=== PATIENT | female | born 1960 | race Caucasian/White ===

== ENCOUNTER 2016-10-02 13:32 | Outpatient (CLI) | payer BC ==
[~2016-10-02] VITALS: Ht 162.6 cm; Wt 65.9 kg
[~2016-10-02 13:32] MED LIST: HYDR-3730 PO; LISI5TAB PO; NF-ESOM40C PO; OMEP-83 PO; PROP20TA5 PO; SUMA25TA3 PO; VENL75CA PO; [UNRECOGNIZED DRUG - OTHER] PO
[2016-10-02] MEDS ORDERED: MULT-35 PO (14:39)
[2016-10-02] MEDS ORDERED: SENN-175 PO (14:39)
[2016-10-02] MEDS ORDERED: SUMA50TA2 PO (14:39)
[2016-10-02 14:43] VITALS: BP 113/69
[2016-10-02 15:14] LABS: BILIRUBIN,URINE NEGATIVE (NEGATIVE); KETONES,URINE NEGATIVE (NEGATIVE); LEUKOCYTE ESTERASE ,URINE NEGATIVE (NEGATIVE); NITRITE,URINE NEGATIVE (NEGATIVE); PH,URINE 5 (5-9); PROTEIN,URINE NEGATIVE (NEGATIVE); UROBILINOGEN,URINE NORMAL (NORMAL)
[2016-10-02 15:17] LABS: BASOPHILS % (AUTO) 0 % (0-10); EOSINOPHILS # (AUTO) 0.1 10^3/uL (0.0-0.3); EOSINOPHILS % (AUTO) 2 % (0-10); LYMPHOCYTES # (AUTO) 1.9 X 10^3 (1.0-4.0); LYMPHOCYTES % (AUTO) 38 % (12-44); MEAN CORPUSCULAR HEMOGLOBIN 31 PG (25-34); MEAN CORPUSCULAR HGB CONC 32 G/DL (32-36); MEAN CORPUSCULAR VOLUME 96 FL (80-99); MEAN PLATELET VOLUME 10.8 FL (7.4-10.4); MONOCYTES # (AUTO) 0.4 X 10^3 (0.0-1.0); MONOCYTES % (AUTO) 7 % (0-12); NEUTROPHILS # (AUTO) 2.7 X 10^3 (1.8-7.8); NEUTROPHILS % (AUTO) 53 % (42-75); PLATELET COUNT 232 10^3/uL (130-400); RED BLOOD COUNT 3.74 10^6/uL (4.35-5.85); RED CELL DISTRIBUTION WIDTH 13.5 % (10.0-14.5); WHITE BLOOD COUNT 5.1 10^3/uL (4.3-11.0)
[2016-10-02 15:46] LABS: SQUAMOUS EPITHELIAL CELL,UR 0-2 /HPF; WBC,URINE RARE /HPF
== END 2016-10-02 16:01 | disposition home or self-care (01) ==
LOC: PREOP 13:32
PROVIDERS: ATTEND Obstetrics & Gynecology
DX: Z01.812 Encounter for preprocedural laboratory examination (principal); Z11.2 Encounter for screening for other bacterial diseases; R19.09 Other intra-abdominal and pelvic swelling, mass and lump; N73.6 Female pelvic peritoneal adhesions (postinfective)
CPT/HCPCS: 36415; 81000; 85025; 86850; 86900; 86901; 87081

== ENCOUNTER 2016-10-09 06:04 | Day surgery (SDC) | payer BC ==
[~2016-10-09] VITALS: Ht 162.6 cm; Wt 65.9 kg
[~2016-10-09 06:04] MED LIST changes: +MULT-35 PO; +SENN-175 PO; +SUMA50TA2 PO
[2016-10-09] MEDS ORDERED: ceFAZolin 1,000 MG (ANCEF) VIAL ONE (06:14)
[2016-10-09] MEDS ORDERED: metroNIDAZOLE 500MG/100ML IVPB 100 ML ONE (06:15)
[2016-10-09] MEDS ORDERED: NS (IVPB) 50 ML ONE (06:15)
[2016-10-09] MEDS ORDERED: ONDANSETRON 4 MG/2 ML (SDV) Z0FRAN ONE ×2 (06:32→11:09)
[2016-10-09] MEDS ORDERED: LIDOCAINE PF 2% 5 ML (XYLOCAINE) VIAL ONE (06:32)
[2016-10-09] MEDS ORDERED: MIDAZOLAM 2 MG/2 ML (VERSED) VIAL ONE (06:32)
[2016-10-09] MEDS ORDERED: DEXAMETHASONE PF 10 MG/ML (DECADRON) VIAL ONE (06:32)
[2016-10-09] MEDS ORDERED: SEVOFLURANE (ULTANE) 15 ML INHAL SOLN ONE ×13 (06:32→10:47)
[2016-10-09] MEDS ORDERED: fentaNYL INJECTION 100 MCG/2 ML AMP ONE ×3 (06:32→11:09)
[2016-10-09] MEDS ORDERED: proPOfol 200 MG/20 ML (DIPRIVAN) VIAL IV ONE (06:32)
[2016-10-09] MEDS ORDERED: LACTATED RINGERS 1,000 ML IV ONE ×3 (06:32→10:22)
[2016-10-09] MEDS ORDERED: ROCURONIUM 50 MG/5 ML (ZEMURON) VIAL IV ONE ×2 (06:32→08:12)
[2016-10-09] MEDS ORDERED: SCOPOLAMINE 1.5 MG (TRANSDERM-SCOP) PATCH TOP ONE (06:45)
[2016-10-09] MEDS ORDERED: metroNIDAZOLE 500 MG/100 ML IVPB (PRE-MIX) IV ONE (06:45)
[2016-10-09] MEDS ORDERED: ONDANSETRON 4 MG/2 ML (SDV) Z0FRAN IV ONE (06:45)
[2016-10-09] MEDS ORDERED: FAMOTIDINE 20MG/2ML IV (PEPCID) IV ONE (06:45)
[2016-10-09] MEDS ORDERED: MIDAZOLAM 2 MG/2 ML (VERSED) VIAL IV ONE (06:45)
[2016-10-09] MEDS ORDERED: CATHETER FLUSH 10 ML SYR IV PRN (06:45)
[2016-10-09 06:47] VITALS: BP 123/73
[2016-10-09] MEDS: LACTATED RINGERS 1,000 ML IV PRN ×3 (06:56→10:00)
[2016-10-09] MEDS ORDERED: ceFAZolin 1 GM/NS 50 ML IVPB IV ONE ×2 (07:15)
[2016-10-09] MEDS ORDERED: BUP/EPI 0.5% 1:200,000 (MARCAINE) 10ML VIAL IJ ONE ×2 (07:20→07:22)
--- NOTE | 2016-10-09 07:36 | Progress Note-Pre Operative ---
Pre-Operative Progress Note H&P Reviewed The H&P was reviewed, patient examined and no changes noted. Date Seen by Provider: Oct 09, 2016 Time Seen by Provider: 07:29 Date H&P Reviewed: Oct 09, 2016 Time H&P Reviewed: 07:29 Pre-Operative Diagnosis: bilateral adnexal masses/cysts, enteropelvic adhesions SUHAIL BRANTLEY DO Oct 09, 2016 07:36
[2016-10-09] MEDS ORDERED: ATROPINE INJ 0.4 MG/ML SDV ONE (08:28)
[2016-10-09] MEDS ORDERED: NEOSTIGMINE (BLOXIVERZ ) 1 MG/1ML 10 ML VIAL ONE (09:52)
[2016-10-09] MEDS ORDERED: GLYCOPYRROLATE 0.2 MG/ML (ROBINUL) 2 ML VIAL ONE (09:52)
[2016-10-09] MEDS ORDERED: morphine INJ 10 MG/ML 1ML (SYR OR VIAL) ONE (11:09)
[2016-10-09] MEDS ORDERED: HYDROmorphone (DILAUDID) 2 MG/ML VIAL ONE (11:09)
[2016-10-09] MEDS ORDERED: KETOROLAC 30 MG/ML VIAL ONE (11:09)
[2016-10-09] MEDS ORDERED: LACTATED RINGERS 1,000 ML IV SCH (11:13)
[2016-10-09] MEDS ORDERED: KETOROLAC 30 MG/ML VIAL IV PRN (11:15)
[2016-10-09] MEDS ORDERED: DOCUSATE SODIUM 100 MG (COLACE) CAP PO PRN (11:15)
[2016-10-09] MEDS ORDERED: HYDROcodone/APAP 7.5 MG/325 MG (LORTAB, LORCET PLUS) TABLET PO PRN (11:15)
[2016-10-09] MEDS ORDERED: SIMETHICONE 80 MG (MYLICON) CHEW PO PRN (11:15)
[2016-10-09] MEDS ORDERED: ONDANSETRON 4 MG/2 ML (SDV) Z0FRAN IV PRN (11:15)
--- NOTE | 2016-10-09 11:17 | Operative Report ---
Operative Report Date of Procedure/Surgery Oct 09, 2016 Surgeon (s) SUHAIL BRANTLEY DO Textbook Associate (s): ALVINA Mcfarlane Post-Operative Diagnosis Bilateral adnexal masses, complex Extensive bowel and omental adhesions Procedure Performed Robotic bilateral salpingectomy and extensive enterolysis/Lysis of adhesions Mini laparotomy Description of Procedure Anesthesia Type: General Estimated blood loss (mL): minimal Specimen(s) collected/removed bilateral tubes and ovaries Allergies and Home Medications Allergies Coded Allergies: penicillin G (Verified Allergy, Intermediate, RASH, pt is able to tolerate Cephalsporins, 10/09/16) Home Medications Lisinopril 5 Mg Tablet, 5 MG PO DAILY, (Reported) Multivitamin 1 Each Tablet, 1 EACH PO DAILY, (Reported) Propranolol Hcl 20 Mg Tablet, 20 MG PO DAILY, (Reported) Sennosides/Docusate Sodium 1 Each Tablet, 1 EACH PO PRN PRN for CONSTIPATION- 1ST LINE, (Reported) Sumatriptan Succinate 50 Mg Tablet, 50 MG PO PRN PRN for MIGRAINE, (Reported) Venlafaxine HCl 75 Mg Cap.er.24h, 75 MG PO DAILY, (Reported) SUHAIL BRANTLEY DO Oct 09, 2016 11:17
[2016-10-09] MEDS ORDERED: ONDANSETRON 4 MG/2 ML (SDV) Z0FRAN IVP PRN (11:30)
[2016-10-09] MEDS ORDERED: morphine INJ 10 MG/ML 1ML (SYR OR VIAL) IVP PRN (11:30)
[2016-10-09] MEDS ORDERED: MEPERIDINE (DEMEROL) INJ 50 MG/ML IVP PRN (11:30)
[2016-10-09] MEDS ORDERED: HYDROmorphone (DILAUDID) 2 MG/ML VIAL IVP PRN (11:30)
[2016-10-09] MEDS ORDERED: KETOROLAC 30 MG/ML VIAL IVP ONE (11:30)
[2016-10-09] MEDS ORDERED: PROMETHAZINE INJ 25 MG/ML (PHENERGAN) AMP IVP PRN (11:30)
[2016-10-09 12:25] VITALS: BP 114/68
[2016-10-09 16:16] VITALS: BP 99/52
[2016-10-09] MEDS ORDERED: HYDR-3816 PO (16:31)
[2016-10-09] MEDS ORDERED: IBUP-1773 PO (16:32)
--- NOTE | 2016-10-09 16:35 | Discharge Inst-Women's Service ---
Discharge Inst-Women's Serv Depart Medication/Instructions New, Converted or Re-Newed RX: RX on Chart Instructions no lifting over 25 lbs, no driving for 1 week Final Diagnosis bilateral ovarian/adnexal cysts, extensive adhesions Consults/Follow Up Additional Follow Up: Yes (1-20weeks with [facility]; 6 weeks with [facility]) Activity Activity: Activity as Tolerated Driving Instructions: No Driving for 1 Week NO SMOKING: NO SMOKING Nothing Inside Vagina: No Douching, No [place], No Tampons Diet Discharge Diet: No Restrictions Symptoms to Report to : Pain Increased, Fever Over 101 Degrees F, Urination Difficulty, Pain/Pressure in Jaw, Vaginal Bleeding Increase, Cramps in Feet or Legs, Vaginal Discharge Foul For Any Problems or Questions: Contact Your Physician Skin/Wound Care Infection Signs and Symptoms: Increased Redness, Foul Odor of Wound, Increased Drainage, Skin Itchy or Has a Rash, Increased Swelling, Temperature Above 101 F Operative Area Clean and Dry: You May Remove Bandage (May remove the large bandage in am. Keep others in place unless soiled or wet. Will remove at the office) Stitches/Felix/Dermabond: Dermabond Bathing Instructions: SUHAIL Niño DO Oct 09, 2016 16:35
[2016-10-10] MEDS ORDERED: IBUPROFEN 600 MG (MOTRIN) TAB PO PRN (05:00)
== END 2016-10-09 17:30 | disposition home or self-care (01) ==
LOC: SDC 06:04 → WS 12:49 → SDC 17:30
PROVIDERS: ATTEND Obstetrics & Gynecology
DX: D27.0 Benign neoplasm of right ovary (principal); D27.1 Benign neoplasm of left ovary; N73.6 Female pelvic peritoneal adhesions (postinfective); I10 Essential (primary) hypertension; G43.909 Migraine, unspecified, not intractable, without status migrainosus; Z79.899 Other long term (current) drug therapy
CPT/HCPCS: 94664; 96361

== ENCOUNTER 2016-11-04 12:49 | Emergency (ER) | payer BC ==
[~2016-11-04] VITALS: Ht 162.6 cm; Wt 63.5 kg
[~2016-11-04 12:49] MED LIST changes: +HYDR-3816 PO; +IBUP-1773 PO
--- OUTSIDE RECORDS SUMMARY | 2016-11-04 12:55 | XMS REPORT | Clinical Summary ---
Author Author [facility] Organization [facility] Address Unknown Phone Unavailable Care Team Providers Care Packing And Shipping Clerk Name Role Phone PCP Unavailable Source Comments Some departments are not documenting in the electronic medical record. If you do not see the information that you expected, contact Release of Information in the Health Information Management department at [phone] for further assistance in locating additional records.[facility] Allergies Active Allergy Reactions Severity Noted Date Comments Penicillins UNKNOWN Low 11/28/2015 Current Medications Prescription Sig. Disp. Refills Start End Date Status Date lisinopril (PRINIVIL; Take 5 mg by mouth daily. Active ZESTRIL) 5 mg tablet propranolol (INDERAL) 20 Take 20 mg by mouth every Active mg/5 mL (4 mg/mL) oral 8 hours. solution venlafaxine XR (EFFEXOR Take 75 mg by mouth Active XR) 75 mg capsule daily. Take with food. SUMAtriptan succinate Take 25 mg by mouth every Active (IMITREX) 25 mg tablet 2 hours as needed for Migraine symptoms. Dose may be repeated in 2 hours if needed. Max of 8 tablets in 24 hours. Active Problems Problem Noted Date Pelvic mass 11/30/2015 Pelvic pain 11/30/2015 Sexual pain disorder 11/30/2015 Family History Medical History Relation Name Comments Hypertension Brother Hypertension Father Cancer-Breast Maternal Aunt Diabetes Maternal Aunt Diabetes Maternal Uncle Hypertension Maternal Uncle Cancer Mother Hypertension Mother Migraines Mother Stroke Mother Diabetes Paternal Aunt Cancer-Breast Sister Depression Sister Migraines Sister Relation Name Status Comments Brother Father Maternal Aunt Maternal Uncle Mother Paternal Aunt Sister Social History Tobacco Use Types Packs/Day Years Used Date Never Smoker Alcohol Use Drinks/Week oz/Week Comments No 0 Standard 0.0 drinks or equivalent Sex Assigned at Date Recorded Not on file Last Filed Vital Signs Vital Sign Reading Time Taken Blood Pressure 111/73 12/28/2015 10:39 AM CDT Pulse 70 12/28/2015 10:39 AM CDT Temperature 36.7 C (98 F) 12/28/2015 10:39 AM CDT Respiratory Rate - - Oxygen Saturation 96% 12/28/2015 10:39 AM CDT Inhaled Oxygen - - Concentration Weight 78.9 kg (174 lb) 12/28/2015 10:39 AM CDT Height 157.5 cm (5' 2") 12/28/2015 10:39 AM CDT Body Mass Index 31.83 12/28/2015 10:39 AM CDT Plan of Treatment Health Maintenance Due Date Last Done Comments HEPATITIS C SCREENING 1960 PHYSICAL (COMPREHENSIVE) 09/01/1967 EXAM PERTUSSIS VACCINE 09/01/1971 TETANUS VACCINE 1977 CERVICAL CANCER SCREENING 1990 BREAST CANCER SCREENING 2000 COLORECTAL CANCER 2010 SCREENING INFLUENZA VACCINE 11/02/2016 Results Not on filefrom Last 3 Months
--- NOTE | 2016-11-04 13:28 | ED Integumentary General ---
General Chief Complaint: Skin/Wound Problems Stated Complaint: POST OP/INCISION OPENING Nursing Triage Note: to ER with with reports of abdominal incision opening. Patient reports that she has surgery nearly 1 month ago, and noticed a burning sensation last night, and noted that the wound was slightly opened. Source: patient Exam Limitations: no limitations History of Present Illness Time seen by provider: 13:25 Initial Comments To ER with reports of incisional opening. Patient noticed some pain to her Pfannenstiel incision last night. She had a complete hysterectomy done [address] Brantley. In the midline of this incision is a small 0.5 cm area of wound he has since. There is no drainage. Pain is minimal today. No erythema. No fevers. Timing/Duration: just prior to arrival Severity: mild Associated Symptoms: denies symptoms Allergies and Home Medications Allergies Coded Allergies: penicillin G (Verified Allergy, Intermediate, RASH, pt is able to tolerate Cephalsporins, 10/09/16) Home Medications Hydrocodone/Acetaminophen 1 Each Tablet, 1-2 EA PO Q6H PRN for PAIN-MODERATE TO SEVERE, #30 Prescribed by: SUHAIL BRANTLEY on 10/09/16 1631 Ibuprofen 600 Mg Tablet, 600 MG PO Q6H PRN for PAIN-MILD, #60 Prescribed by: SUHAIL BRANTLEY on 10/09/16 1632 Lisinopril 5 Mg Tablet, 5 MG PO DAILY, (Reported) Multivitamin 1 Each Tablet, 1 EACH PO DAILY, (Reported) Propranolol Hcl 20 Mg Tablet, 20 MG PO DAILY, (Reported) Sennosides/Docusate Sodium 1 Each Tablet, 1 EACH PO PRN PRN for CONSTIPATION- 1ST LINE, (Reported) Sumatriptan Succinate 50 Mg Tablet, 50 MG PO PRN PRN for MIGRAINE, (Reported) Venlafaxine HCl 75 Mg Cap.er.24h, 75 MG PO DAILY, (Reported) Constitutional: see HPI EENTM: see HPI Respiratory: no symptoms reported Cardiovascular: no symptoms reported Genitourinary: no symptoms reported Musculoskeletal: no symptoms reported Skin: see HPI Psychiatric/Neurological: No Symptoms Reported Past [id number] Hx Patient Social History Alcohol Use: Denies Use Recreational Drug Use: No Smoking Status: Never a Smoker 2nd Hand Smoke Exposure: No Recent Foreign Travel: No Contact w/Someone Who Travel: No Recent Infectious Disease Expo: No Recent Hopitalizations: No Physical Abuse: No Sexual Abuse: No Mistreated: No Fear: No Immunizations Up To Date Tetanus Booster (TDap): Unknown Seasonal Allergies Seasonal Allergies: No Surgeries History of Surgeries: Yes (C/S X3, BLADDER SLING, DENTAL SURGERY) Surgeries: Gallbladder, Hysterectomy, Oophorectomy Respiratory History of Respiratory Disorde: No Cardiovascular History of Cardiac Disorders: Yes Cardiac Disorders: Heart Attack Neurological History of Neurological Disord: Yes Neurological Disorders: Headaches /Migraines Reproductive System Hx Reproductive Disorders: No (BILAT ADENEXAL MASS, ADHESIONS) Sexually Transmitted Disease: No HIV/AIDS: No Female Reproductive Disorders: Denies [employer] INST[employer]ER History: Hysterectomy Gastrointestinal History of Gastrointestinal Di: Yes (CONSTIPATION AT TIMES) Gastrointestinal Disorders: Chronic Constipation Musculoskeletal History of Musculoskeletal Dis: Yes Musculoskeletal Disorders: Arthritis Endocrine History of Endocrine Disorders: No HEENT Loss of Vision: Bilateral Hearing Impairment: Denies Cancer History of Cancer: No Psychosocial History of Psychiatric Problem: No Suicide Risk Score: 0 Integumentary History of Skin or Integumenta: No Blood Transfusions History of Blood Disorders: No Adverse Reaction to a Blood Tr: No (N/A) Physical Exam Vital Signs Vital Sign - Last 12Hours 11/04/16 13:06 Temp 98.1 Pulse 78 Resp 18 B/P (MAP) 134/70 Pulse Ox 96 O2 Delivery Room Air Capillary Refill : Less Than 3 Seconds General Appearance: WD/WN, no apparent distress HEENT: PERRL/EOMI, normal ENT inspection Neck: non-tender, full range of motion Respiratory: no respiratory distress, no accessory muscle use Gastrointestinal: normal bowel sounds, non tender, soft Neurologic/Psychiatric: alert, normal mood/affect, oriented x 3 Skin: normal color, warm/dry Skin Problem Character: other (over the middle of the horizontal suprapubic abdominal incision there is a 0.5 cm area of superficial wound dehiscence without drainage or surrounding erythema.) Progress/Results/Core Measures Results/Orders Vital Signs/I&O Vital Sign - Last 12Hours 11/04/16 13:06 Temp 98.1 Pulse 78 Resp 18 B/P (MAP) 134/70 Pulse Ox 96 O2 Delivery Room Air Blood Pressure Mean: 91 Departure Impression Impression: Primary Impression: Superficial dehiscence of wound Disposition: 01 HOME, SELF-CARE Condition: Stable Departure-Patient Inst. Decision time for Depature: 13:27 Referrals: AFRICA RIGGS MD (PCP) Primary Care Physician Patient Instructions: Wound Dehiscence Add. Discharge Instructions: 1. This should heal just fine. He will heal a bit slower healing from the bottom up. Reasons to become concerned are worsening pain, drainage, redness or swelling 3. Follow-up with Dr. Brantley as scheduled 4. You may leave this open to air. All discharge instructions reviewed with patient and/or family. Voiced understanding. SHERRIE BARCENAS APRN Nov 04, 2016 13:28
[2016-11-04 13:30] VITALS: BP 134/70
== END 2016-11-04 13:30 | disposition home or self-care (01) ==
LOC: EDUNIT# 12:49 → ER 12:51
DX: T81.31XA Disruption of external operation (surgical) wound, not elsewhere classified, initial encounter (principal); I25.2 Old myocardial infarction; G43.909 Migraine, unspecified, not intractable, without status migrainosus; K59.09 Other constipation; H54.0 Blindness, both eyes; Z90.710 Acquired absence of both cervix and uterus
CPT/HCPCS: 99282

== ENCOUNTER → 2019-02-17 | Outpatient (CLI) | payer BC ==
[~2019-02-17] MED LIST changes: +HYDR-34 PO; -HYDR-3816 PO
--- NOTE | 2019-02-17 10:20 | Diagnostic Imaging Report ---
Clinical indication: Patient with neck pain which is chronic. Patient had previous cervical spine surgery in 2018. Exam: MRI of the cervical spine performed without IV contrast. Sequences include sagittal T1, sagittal T2, sagittal T2 fat sat, and axial T2. Comparison: None. Findings: There are postoperative changes of the cervical spine with C4-C7 anterior cervical disc fusion. Unable to determine if there is bony bridging/fusion seen. There is no paraspinal fluid collection. Limited visualization of the posterior fossa is unremarkable. Cervical spinal cord is normal in cord caliber with no abnormal signal. Besides postop changes, there is no significant paraspinal soft tissue abnormality. There is a 5 mm high T2 signal lesion involving the left thyroid gland. C1-C2: There are degenerative spurs involving the atlantoodontoid interval anteriorly. There is no significant central canal narrowing. C2-C3: Unremarkable. C3-C4: There is a small left subarticular disc spur. There is at least moderate left facet arthropathy and moderate left neural foramen narrowing. There is mild right neural foramen narrowing. There is mild central canal narrowing. C4-C5: There is no significant central spinal canal or neural foramen narrowing. C5-C6: There is central posterior vertebral body prominence at the upper C6 level which causes moderate central canal stenosis. There is mild right neural foramen narrowing and no significant left neural foramen narrowing. C6-C7: There is a right subarticular vertebral body spur which causes severe right neural foramen narrowing. There is mild left neural foramen narrowing due to vertebral body prominence in the left subarticular region. There is mild central canal narrowing. C7-T1: Unremarkable. Impression: 1: There is a posterior vertebral body prominence of the upper C6 level which causes moderate central canal stenosis. 2: There is a C6-C7 right subarticular vertebral body spur which causes severe right neural foramen narrowing. 3: The remainder of the cervical spine levels are described above. 4: There is a 5 mm high T2 signal lesion involving the left thyroid gland. Nonemergent thyroid ultrasound would better evaluate. Dictated by: Dictated on workstation # [id number]
== END ==
LOC: RAD 08:05
PROVIDERS: ATTEND Physician Assistant
DX: M48.02 Spinal stenosis, cervical region (principal); E04.1 Nontoxic single thyroid nodule; M46.02 Spinal enthesopathy, cervical region; M46.82 Other specified inflammatory spondylopathies, cervical region; Z98.1 Arthrodesis status
CPT/HCPCS: 72141

== ENCOUNTER 2021-10-31 15:00 | Outpatient (RCR) | payer BC ==
[~2021-10-31 15:00] MED LIST changes: -SENN-175 PO; +SENN1TAB76 PO
== END 2021-11-01 | disposition home or self-care (01) ==
PROVIDERS: ATTEND Nurse Practitioner Family
DX: M54.16 Radiculopathy, lumbar region (principal); I10 Essential (primary) hypertension

== ENCOUNTER → 2021-12-19 | Outpatient (CLI) | payer BC | LOC: LAB 16:22 | PROVIDERS: ATTEND Physical Medicine & Rehabilitation | DX: R52 Pain, unspecified (principal) | CPT/HCPCS: 36415; 86038; 86200; 86812 ==